=== PATIENT | male | born 1935 | race Caucasian/White ===

== ENCOUNTER → 2021-04-06 09:45 | Outpatient (BNVA) | payer MEDICARE, SELFPAY | PROVIDERS: Visit Provider Urology | CPT/HCPCS: 99212 ==

== ENCOUNTER → 2021-12-14 09:58 | Outpatient (BNVA) | payer MEDICARE, SELFPAY | PROVIDERS: PCP Internal Medicine; Visit Provider Urology | DX: R97.20 Elevated prostate specific antigen [PSA] (principal) | CPT/HCPCS: Q3014 ==

== ENCOUNTER → 2022-06-21 09:03 | Outpatient (BNVA) | payer MEDICARE, SELFPAY | PROVIDERS: PCP Internal Medicine; Visit Provider Urology | DX: N40.0 Benign prostatic hyperplasia without lower urinary tract symptoms (principal); R97.20 Elevated prostate specific antigen [PSA] | CPT/HCPCS: 51798; 99212 ==

== ENCOUNTER → 2022-12-25 14:47 | Outpatient (BNVA) | payer MEDICARE, SELFPAY | PROVIDERS: PCP Internal Medicine; Visit Provider Urology | DX: N40.0 Benign prostatic hyperplasia without lower urinary tract symptoms (principal); R97.20 Elevated prostate specific antigen [PSA] | CPT/HCPCS: Q3014 ==

== ENCOUNTER 2023-08-21 15:04 | Outpatient (AMB) | payer MEDICARE, SELFPAY ==
--- NOTE | 2023-08-21 15:05 | A.OFFVIS_ITS ---
Intake Intake Visit Reasons: 6M PSA 5.8 ng/mL 08/14/2023 Intake Note: Patient is present for Telephone visit for PSA Results: Total PSA: 5.8 ng/mL, 08/14/2023. Urology Med: Dutasteride Antibiotic Allergy: none Blood Thinner: None Elevator Adjuster Required: No Accompanied by: Self / Same As Patient Allergies No Known Allergies Allergy (Verified 08/21/23 15:07) Medication List - Last Reconciled 08/21/23 by Africa Layton MD acyclovir 800 mg PO atorvastatin 80 mg PO DAILY atorvastatin 40 mg PO DAILY carvedilol 6.25 mg PO BID dutasteride 0.5 mg PO DAILY 90 days hydrocortisone 1% topical BID lisinopril 20 mg PO DAILY omeprazole 20 mg PO DAILY prednisone 10 mg PO DAILY triamcinolone acetonide 0.1% topical HPI HPI Comments History of Present Illness Details Doni MCADAMS is followed by Dr Mcgowan. He is a patient of Dr. Hayden. 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 Prior PSA elevation Had been placed on dutasteride with improvement ? Current visit is for?further evaluation of, , lower urinary tract symptoms, predominate obstructive symptoms ?- elevated PSA.? Current treatment includes?medication, 5-AR - dutasteride ? Prostate Symptom Score?07/29 , Mild (0-8), Bother 3 ?01/28 , Mild (0-8), Bother 2.? Symptoms include?07/29 , incomplete emptying, weak stream, and are stable ?01/28 , and are improving ? PSA?06/29 6.9, 01/28 2.4,?01/29 3.3, 04/01 4.0, 12/01 3.9, 06/02 4.4 10%, 01/01 5.2 10% ? Prostate volume?50+gm.? Plan: Cont to Monitor PSA FU with Dr. Mcgowan in 6months, PSA prior PFSH Medical History Hyperlipidemia HTN (hypertension) Weak urinary stream Benign prostatic hyperplasia without lower urinary tract symptoms Elevated PSA Family History Father No problems noted. Mother No problems noted. Review of Systems Const All systems reviewed & are unremarkable except as noted in HPI and below Reports no additional complaints Eyes Reports no additional complaints ENT Reports no additional complaints Card Denies dyspnea Resp Denies cough and Denies dyspnea GI Reports no additional complaints Musc Reports no additional complaints Skin/Breast Denies rash and Denies unusual bruising Neuro Reports no additional complaints Psych Reports no additional complaints Endo Reports no additional complaints Abelardo/Lymph Reports no additional complaints Aller/Immun Reports no additional complaints Assessment & Plan Assessment & Plan (1) Elevated PSA: Code(s): R97.20 - Elevated prostate specific antigen [PSA] (2) BPH loc w urin obs/LUTS: Code(s): N40.1 - Benign prostatic hyperplasia with lower urinary tract symptoms (3) Benign prostatic hyperplasia without lower urinary tract symptoms: Code(s): N40.0 - Benign prostatic hyperplasia without lower urinary tract symptoms Plan Six month follow-up PSA Orders: Orders PSA,Total (Free>4and<10) 5 Months N40.1 - Benign prostatic hyperplasia with lower urinary tract symptoms, R97.20 - Elevated prostate specific antigen [PSA] Telehealth Telehealth Location of provider rendering services: practice address Location of patient: address on file Patient Identification confirmed using: Name, : Yes Telehealth method: voice only Patient verbally consented to treatment: Yes Patient verbally consented to billing insurance company: Yes Patient informed of any privacy concerns related to visit: Yes Minutes spent on Phone/Video with Pt.: 15 Coding Level of Care Code Tele New Pt Level 3 (32611) Diagnoses Elevated PSA R97.20 BPH loc w urin obs/LUTS N40.1 Benign prostatic hyperplasia without lower urinary tract symptoms N40.0
== END 2023-08-21 16:31 | disposition home or self-care (01) ==
LOC: HO.HUSH 15:04
PROVIDERS: PCP Internal Medicine; Visit Provider Urology
DX: R97.20 Elevated prostate specific antigen [PSA] (principal); N40.1 Benign prostatic hyperplasia with lower urinary tract symptoms; N40.0 Benign prostatic hyperplasia without lower urinary tract symptoms
CPT/HCPCS: 99442

== ENCOUNTER → 2023-08-21 15:04 | Outpatient (BNVA) | payer MEDICARE, SELFPAY | PROVIDERS: PCP Internal Medicine; Visit Provider Urology ==

== ENCOUNTER 2024-06-30 11:02 | Outpatient (AMB) | payer MEDICARE, SELFPAY ==
--- NOTE | 2024-06-30 11:21 | A.OFFVIS_ITS ---
Intake Visit Reasons: 7M Follow Up-PSA/PVR(set) Elevated Intake Note: Patient is present for PSA Follow up Urology Med: Dutasteride Antibiotic Allergy: None Blood Thinner: Aspirin LABS: 06/27/2024 - PSA, Total- 5.8 - PSA, Free- 0.47 - PSA, %Free- 8.1 Associate Vice President Required: No Philosophy And Religion Instructor: Philosophy And Religion Instructor Present Accompanied by: Other Relationship Allergies No Known Allergies Allergy (Verified 06/30/24 11:31) HPI Comments Details: Doni MCADAMS is followed by Dr Mcgowan. He is a patient of Dr. Hayden. He is seen for the following urologic conditions - lower urinary tract symptoms - elevated PSA Yearly follow-up Slowly elevating PSA on dutasteride Highly likelihood of low-grade prostate cancer Review in 6 months OSMANY 2+ prostate soft Lower Urinary Tract Symptoms:? Prior PSA elevation Had been placed on dutasteride with improvement ? Current visit is for?further evaluation of, , lower urinary tract symptoms, predominate obstructive symptoms ?- elevated PSA.? Current treatment includes?medication, 5-AR - dutasteride ? Prostate Symptom Score?07/29 , Mild (0-8), Bother 3 ?01/28 , Mild (0-8), Bother 2.? Symptoms include?07/29 , incomplete emptying, weak stream, and are st able ?01/28 , and are improving ? PSA?06/29 6.9, 01/28 2.4,?01/29 3.3, 04/01 4.0, 12/01 3.9, 06/02 4.4 10%, 01/01 5.2 10%, 09/04 5.8 ? Prostate volume?50+gm.? Plan: Cont to Monitor PSA FU with Dr. Mcgowan in 6months, PSA prior [facility] Medical History Hyperlipidemia HTN (hypertension) Weak urinary stream Benign prostatic hyperplasia without lower urinary tract symptoms Elevated PSA Family History Father No problems noted. Mother No problems noted. Review of Systems Const Denies chills and Denies fever(s) Card Reports no additional complaints and Denies syncope Resp Denies cough GI Denies abdominal pain and Denies heartburn Reports as per HPI and Denies change in libido Neuro Denies syncope Psych Denies change in libido Endo Denies change in libido Physical Exam Const General: cooperative, healthy appearing, comfortable and no acute distress Orientation/consciousness: patient oriented x3 HEENT Face and sinus: Yes normal facial exam Mouth: moist mucous membranes Neck Neck: Yes normal visual inspection, Yes full ROM and Yes trachea midline Chest Chest palpation & inspection: normal inspection of the chest Resp Effort & Inspection: normal respiratory effort, able to speak in complete sentences and no respiratory distress GI Inspection: Yes normal to inspection Rectal Exam - Male: Yes normal sphincter tone and Yes prostate normal Male General Exam: Yes normal external exam Penis: normal penis and circumcised Meatus: meatus normal Scrotum: scrotum normal Testes: Testes normal Back/Spine/Pelvis Cervical Spine: normal cervical lordosis Thoracic/Lumbar Spine: thoracic and lumbar spine normal to inspection Skin General skin exam: no rashes or lesions noted Neuro General: patient oriented x3, gait normal, tone normal and moves all extremities Extrem General: Yes normal to inspection and Yes capillary refill normal Assessment & Plan Assessment & Plan (1) Elevated PSA: Code(s): R97.20 - Elevated prostate specific antigen [PSA] Category: Medical (2) Benign prostatic hyperplasia without lower urinary tract symptoms: Code(s): N40.0 - Benign prostatic hyperplasia without lower urinary tract symptoms Category: Medical (3) Weak urinary stream: Code(s): R39.12 - Poor urinary stream Category: Medical Plan Six-month follow-up PSA Orders: Orders Prostate Specific Antigen 6 Months R97.20 - Elevated prostate specific antigen [PSA] Patient Instructions: Imaging studies, laboratory and physical exam results were discussed and reviewed in detail. No major barriers to patient understanding were identified. An opportunity to ask questions regarding the treatment plan was provided. All questions were answered. The patient expressed understanding and agreement with the above treatment plan. The patient is aware they should contact our office by phone for worsening of their current condition or the appearance of new urologic symptoms. Compliance is encouraged with any medications and followup testing that is ordered. It is a privilege to participate in the urologic care of your patient. If you have any questions or concerns regarding treatment for the above conditions, or other urologic issues, please do not hesitate to contact me. The office telephone contact is [phone]. This note is constructed using voice recognition software. While every effort has been made to ensure accuracy hired worker errors may have been included. Yours sincerely, Dr Javier Mcgowan MD, [facility] - Urology Providers of Expert, Compassionate Care for the Genitourinary System Coding Level of Care Code Est Pt Level 3 (20304) Diagnoses Elevated PSA R97.20 Benign prostatic hyperplasia without lower urinary tract symptoms N40.0 Weak urinary stream R39.12
== END 2024-06-30 11:46 | disposition home or self-care (01) ==
PROVIDERS: PCP Internal Medicine; Visit Provider Urology
DX: R97.20 Elevated prostate specific antigen [PSA] (principal); N40.0 Benign prostatic hyperplasia without lower urinary tract symptoms; R39.12 Poor urinary stream
CPT/HCPCS: 99213

== ENCOUNTER → 2024-06-30 11:02 | Outpatient (BNVA) | payer MEDICARE, SELFPAY | PROVIDERS: PCP Internal Medicine; Visit Provider Urology | DX: N40.0 Benign prostatic hyperplasia without lower urinary tract symptoms (principal); R39.12 Poor urinary stream; R97.20 Elevated prostate specific antigen [PSA] | CPT/HCPCS: 99212 ==

== ENCOUNTER 2025-03-10 09:43 | Outpatient (AMB) | payer MEDICARE, SELFPAY ==
--- NOTE | 2025-03-10 09:44 | A.OFFVIS_ITS ---
Intake Visit Reasons: 6m/PSA(psa?) Intake Note: Patient is present for Follow up for BPH Urology Med: Dutasteride Antibiotic Allergy: None Blood Thinner: Aspirin Labs done 03/04/2025 PSA : 6.8 Liquor Runner Required: No Medicare Compliance Auditor: Medicare Compliance Auditor Present Accompanied by: Spouse Allergies No Known Allergies Allergy (Verified 03/10/25 09:45) HPI Comments Details: Doni MCADAMS is followed by Dr Mcgowan. He is a patient of Dr. Hayden. He is seen for the following urologic conditions - lower urinary tract symptoms - elevated PSA Telemedicine Evaluation 15 min Consultation [facility] Video Six-month follow-up PSA check Has been on dutasteride Progressive dementia Daughter would prefer to repeat PSA in six-month Discussed prostate MRI OSMANY 2+ prostate soft Lower Urinary Tract Symptoms:? Prior PSA elevation Had been placed on dutasteride with improvement ? Current visit is for?further evaluation of, , lower urinary tract symptoms, predominate obstructive symptoms ?- elevated PSA.? Current treatment includes?medication, 5-AR - dutasteride ? Prostate Symptom Score?07/29 , Mild (0-8), Bother 3 ?01/28 , Mild (0-8), Bother 2.? Symptoms include?07/29 , incomplete emptying, weak stream, and are stable ?01/28 and are improving ? PSA?06/29 6.9, 01/28 2.4,?01/29 3.3, 04/01 4.0, 12/01 3.9, 06/02 4.4 10%, 01/01 5.2 10%, 07/05 5.8, 02/03 6.8 ? Prostate volume?50+gm.? Plan: Cont to Monitor PSA F/U with Dr. Mcgowan in 6 months, PSA prior PFSH Medical History Hyperlipidemia HTN (hypertension) Weak urinary stream Benign prostatic hyperplasia without lower urinary tract symptoms Elevated PSA Family History Father No problems noted. Mother No problems noted. Review of Systems Const All systems reviewed & are unremarkable except as noted in HPI and below Reports no additional complaints Resp Reports no additional complaints GI Reports no additional complaints Reports as per HPI Musc Reports no additional complaints Physical Exam Telemedicine evaluation Appropriate responses Regular breathing rate and rhythm HEENT Head: Yes normal to inspection Ears: hearing grossly normal bilaterally Eyes General: appearance normal, both eyes and all related structures Neck Neck: Yes normal visual inspection Chest Chest palpation & inspection: normal inspection of the chest Resp Effort & Inspection: normal respiratory effort and able to speak in complete sentences Telehealth Telehealth Telehealth Platform: [facility] Location of provider rendering services: practice address Location of patient: address on file Patient Identification confirmed using: Name, : Yes Telehealth method: video Patient verbally consented to treatment: Yes Patient verbally consented to billing insurance company: Yes Patient informed of any privacy concerns related to visit: Yes Minutes spent on Phone/Video with Pt.: 15 Assessment & Plan Assessment & Plan (1) Elevated PSA: Code(s): R97.20 - Elevated prostate specific antigen [PSA] Category: Medical (2) BPH loc w urin obs/LUTS: Code(s): N40.1 - Benign prostatic hyperplasia with lower urinary tract symptoms Category: Medical Plan Six-month follow-up PSA Orders: Orders PSA,Total (Free>4and<10) 6 Months R97.20 - Elevated prostate specific antigen [PSA] Medications: Refilled dutasteride 0.5 mg PO DAILY 90 caps 1RF 90 days R97.20 - Elevated prostate specific antigen [PSA] Patient Instructions: This note is constructed using voice recognition software. While every effort has been made to ensure accuracy crewman main battle tank errors may have been included. Imaging studies, laboratory and physical exam results were discussed and reviewed in detail. No major barriers to patient understanding were identified. An opportunity to ask questions regarding the treatment plan was provided. All questions were answered. The patient expressed understanding and agreement with the above treatment plan. The patient is aware they should contact our office by phone for worsening of their current condition or the appearance of new urologic symptoms. Compliance is encouraged with any medications and followup testing that is ordered. It is a privilege to participate in the urologic care of your patient. If you have any questions or concerns regarding treatment for the above conditions, or other urologic issues, please do not hesitate to contact me. The office telepho ne contact is [phone]. Sincerely, Dr Javier Mcgowan MD, [facility] - Urology Compassionate Specialist Care for the Genitourinary System Coding Level of Care Code Tele Est Pt Level 3 (34023) Complex EM visit Add On G2211 Diagnoses Elevated PSA R97.20 BPH loc w urin obs/LUTS N40.1
--- OUTSIDE RECORDS SUMMARY | 2025-03-10 10:19 | XMS_ITS | Clinical Summary ---
Author Organization [facility] Address [address] [place] [address] Care Team Providers Care Car Washer Name Role Phone Unavailable Primary Care Provider Unavailabl e Social History Tobacco Use Types Packs/Day Years Used Date Smoking Tobacco: Never Assessed Sex and Gender Information Value Date Recorded Sex Assigned at Not on file Gender Identity Not on file Sexual Orientation Not on file Plan of Treatment Health Maintenance Due Date Last Done Comments COVID-19 Vaccine (#1) 1935 Depression Screening 1947 Preventative Health Evaluation 1953 DTap / Tdap / Td (1 - Tdap) 1954 Shingrix-Zoster Vaccine (1 of 2) 1985 Fall Risk Assessment 2000 Pneumococcal Vaccine (1 of 1 - PCV) 2000 RSV Adult > 60+ Yrs or Pregn ant (1 - 1-dose 75+ series) 2010 Influenza Vaccine (#1) 2025 Hepatitis B Vaccines Aged Out No long er eligible based on patient's age to complete this topic RSV Ped < 20 months Aged Out No longe r eligible based on patient's age to complete this topic
--- OUTSIDE RECORDS SUMMARY | 2025-03-10 10:19 | XMS_ITS | Clinical Summary ---
Author Organization [facility] ity Address [address] [place] [address] Care Team Providers Care Cnc Service Technician Name Role Phone Unavailable Primary Care Provider Unavailabl e Social History Tobacco Use Types Packs/Day Years Used Date Smoking Tobacco: Never Assessed Sex and Gender Information Value Date Recorded Sex Assigned at Not on file Legal Sex Male 10:46 AM EST Gender Identity Not on file Sexual Orientation Not on file Plan of Treatment Health Maintenance Due Date Last Done Comments DTaP,Tdap,and Td Vaccines (1 - Tdap) 1954 Pneumococcal Vaccine: 50+ Ye ars (1 of 1 - PCV) 1985 Zoster Vaccines (1 of 2) 1985 RSV Immunization Adult Patie nts (1 - 1-dose 75+ series) 2010 COVID-19 Vaccine ( - 2023-2 5 season) 2024 Depression Screening 08/12/2024 Influenza Vaccine (#1) 2025 HIB Vaccines Aged Out No longer eligi ble based on patient's age to complete this topic HPV Vaccines Aged Out No longer eligi ble based on patient's age to complete this topic Hepatitis A Vaccines Aged Out No long er eligible based on patient's age to complete this topic Hepatitis B Vaccines Aged Out No long er eligible based on patient's age to complete this topic IPV Vaccines Aged Out No longer eligi ble based on patient's age to complete this topic MMR Vaccines Aged Out No longer eligi ble based on patient's age to complete this topic Meningococcal ACWY Vaccine Aged Out N o longer eligible based on patient's age to complete this topic Meningococcal B Vaccine Aged Out No l onger eligible based on patient's age to complete this topic RSV Immunization Patients Un belkys 20 months Aged Out No longer eligible b ased on patient's age to complete this topic Varicella Vaccines Aged Out No longer eligible based on patient's age to complete this topic
== END 2025-03-10 10:34 | disposition home or self-care (01) ==
LOC: HO.HUSH 09:43
PROVIDERS: PCP Internal Medicine; Visit Provider Urology
DX: R97.20 Elevated prostate specific antigen [PSA] (principal); N40.1 Benign prostatic hyperplasia with lower urinary tract symptoms
CPT/HCPCS: 99213; G2211